=== PATIENT | female | born 1995 | race Caucasian/White ===

== ENCOUNTER 2019-01-02 21:01 | Emergency (ER) | payer SELFPAY ==
[2019-01-02 21:02] VITALS: BP 100/63; PULSE 75; RESP 16; TEMP 36.8; O2SAT 100; BMI 25.0
--- NOTE | 2019-01-02 21:15 | ED.DCSUM_ITS ---
- ER Visit Summary Date of Service: 01/02/19 Chief Complaint: Headache History of Present Illness: The patient is a 23 F who presents with a headache. She states she said this headache for 10 days. The pain is throbbing in the right side of the top of her head and radiates down to her neck. Loud voices m rickie the pain worse. She has blurry vision and dizziness. She has tried Aleve, Tylenol and ibuprofen which helps with the pain but it does not resolve it. She had a possible syncopal episode today as well. She states that she was having a headache and she ended up on the couch but she does not know how she got there. She has no history of migraines. She denies any fevers. Physical Examination: Vital signs reviewed. HEENT exam unremarkable. Heart is regular rate and rhythm without murmurs. Lungs are clear to auscultation. Abdomen is soft and nontender. Extremities reveal no edema. Skin exam normal. Neurologic exam normal. Test Results: Patient was given IV fluids, Compazine, Benadryl and Toradol. Her EKG is sinus rhythm with rate of 64. There are no ST changes. QTc 418. DC interval 144. Upon reevaluation she is feeling much better. With her normal neurologic examination and the longevity of her symptoms, I do not feel she req uires a CAT scan of her head. Patient will be discharged to use her home medications. If her headaches return she will need to follow-up with her PCP for further evaluation. Emergency Department Course and Treatment: [] Treatment Plan: [] Disposition: Discharge Impression: Headache This note was generated with [employer] dictation software. It may contain incorrect words, spelling, and punctuation that were not noted in review of the chart prior to signing ED Disposition - Plan for ED Patient: Referrals: [facility] Doctor,Out of [NON-STAFF] -
--- NOTE | 2019-01-02 21:16 | EKG12_ITS ---
Test Reason : HEADACHE Blood Pressure : / mmHG Vent. Rate : 064 BPM Atrial Rate : 064 BPM P-R Int : 144 ms QRS Dur : 086 ms QT Int : 406 ms P-R-T Axes : 051 073 055 degrees QTc Int : 418 ms Normal sinus rhythm Normal ECG Confirmed by SAE GUZMAN, EZEKIEL ([id number]), sound editor OSKAR FR[place] ([id number]) on 01/06/2019 11:42:08 AM Referred By: MEERA Confirmed By:EZEKIEL QUEVEDO MD
[2019-01-02] MEDS: Ketorolac 30 MG/ML Syringe IV (21:27)
[2019-01-02] MEDS: DiphenhydrAMINE 50 MG/ML Syringe 25 MG IV (21:28)
[2019-01-02] MEDS: 0.9% Normal Saline 1,000 ML 999 ML IV (21:28)
[2019-01-02] MEDS: proCHLORPERazine 10 MG/2 ML Vial IV (21:28)
--- NOTE | 2019-01-02 21:55 | ED.RN ---
NO OLD EKGS
--- NOTE | 2019-01-02 22:13 | DCINST.ED_ITS ---
ED Disposition - Plan for ED Patient: Disposition: Home or Assisted Living Instructions: HEADACHE, Unspecified Referrals: [facility] Doctor,Out of [NON-STAFF] -
[2019-01-02 22:21] VITALS: BP 103/64; PULSE 74; RESP 18; O2SAT 97
== END 2019-01-02 22:22 | disposition home or self-care (01) ==
PROVIDERS: Emergency Provider Emergency Medicine
DX: R51 Headache (principal); H53.8 Other visual disturbances; R42 Dizziness and giddiness
CPT/HCPCS: 93005; 96361; 96374; 96375; 99283; J7030; A4216

== ENCOUNTER 2019-07-01 18:09 | Emergency (ER) | payer SELFPAY ==
[2019-07-01 18:12] VITALS: BP 104/60; PULSE 76; RESP 16; TEMP 36.8; O2SAT 97; BMI 23.9
[2019-07-01 19:04] VITALS: O2SAT 97
--- NOTE | 2019-07-01 19:10 | RAD_ITS ---
STUDY: X-RAY CHEST REASON FOR EXAM: Female, 24 years old. COUGH, CHEST PAIN TECHNIQUE: PA and lateral views of the chest. COMPARISON: None. FINDINGS: The lungs are clear and expanded. There is no demonstrated pleural abnormality. Normal size heart. Normal mediastinum and shantell. Normal visualized pulmonary arteries. Normal visualized aortic arch and descending thoracic aorta. Normal visualized thoracic spine. Normal visualized ribs, clavicles, and shoulders. There is no demonstrated abnormality of the visualized soft tissue structures of the upper abdomen. RAD/Chest PA and Lateral IMPRESSION: Normal x-ray examination of the chest. Electronically Signed: John Daley MD at 19:47 EST , Service support ,
[2019-07-01 19:47] LABS: D-Dimer Quantitative (DVT/PE) 0.41 FEU/ug/m (0.27-0.49)
--- NOTE | 2019-07-01 19:54 | ED.VISSUMM ---
- ER Visit Summary Date of Service: 07/01/19 Chief Complaint: [Cough] History of Present Illness: The patient is a 24 F [presents to the emergency department complaint of a cough that started a week and a half ago. Patient denies any fever. Cough is nonproductive. She denies any sore throat or body aches. About a day and a half ago she started having discomfort in the front of her chest. Pain is worse with breathing and moving. She denies recent travel or surgery. Patient does not smoke but does vape. She has no medical history.] Physical Examination: [HEENT-PERRLA, EOMI. Cranial nerves II through XII grossly intact. TMs clear. Mucous membranes moist. No adenopathy. Cardiovascular-regular rate and rhythm without murmur or ectopy Lungs-clear to auscultation, chest wall stable without crepitus or subcu emphysema Abdomen-normoactive bowel sounds, soft, nontender, no rebound or rigidity, no peritoneal signs. Extremities-intact ?4, normal range of motion, normal pulses, atraumatic] Test Results: [Chest x-ray obtained was normal. D-dimer was normal at 0.41.] Emergency Department Course and Treatment: [] Treatment Plan: [We will be treated with Tessalon Perles and naproxen. Patient advised to follow-up with her primary care physician 3 to 5 days.] Disposition: [Discharged home in stable condition. Patient advised to quit vaping due to risk of lung damage.] Impression: [Viral URI Chest wall pain] This note was generated with [employer] dictation software. It may contain incorrect words, spelling, and punctuation that were not noted in review of the chart prior to signing ED Disposition - Plan for ED Patient: Referrals: Negrito Smiley MD [Primary Care Provider] -
--- NOTE | 2019-07-01 19:55 | ED.DEP ---
ED Disposition - Plan for ED Patient: Instructions: BRONCHITIS, No Antibiotic (Adult), Chest Wall Strain Prescriptions: Naproxen [Naprosyn] 500 mg PO BID PRN #20 tab Prescription Printed Benzonatate [Tessalon Perle] 200 mg PO TID PRN PRN #20 cap PRN Reason: Cough Prescription Printed Referrals: Negrito Smiley MD [Primary Care Provider] - 3-5 Days
[2019-07-01 20:13] VITALS: BP 98/59; PULSE 65; RESP 18; O2SAT 98
--- NOTE | 2019-07-01 20:14 | ED.RN ---
PT A+OX4, AMBULATORY ON OWN ACCORD. PT GIVEN WRITTEN AND VERBAL DISCHARGE INSTRUCTIONS AND HOME GOING PAPER WORK. EDUCATED ON HOME GOING PRESCRIPTIONS, FOLLOW UP. TOLD TO RETURN TO ED FOR ANY NEW OR WORSENED SX. PT VERBALIZES UNDERSTANDING AND DENIES ANY FURTHER QUESTIONS. PT IV D/C AND COVERED WITH 2X2 GAUZE AND PAPER TAPE. AMBULATORY OUT OD DEPT WITH FAMILY AFTER DRESSING SELF.
== END 2019-07-01 20:16 | disposition home or self-care (01) ==
LOC: ED 18:56
PROVIDERS: Emergency Provider Emergency Medicine; PCP Family Medicine
DX: J06.9 Acute upper respiratory infection, unspecified (principal); R07.89 Other chest pain; F17.290 Nicotine dependence, other tobacco product, uncomplicated
CPT/HCPCS: 71046; 85379; 99283; A4216